=== PATIENT | female | born 1945 | race Asian ===

== ENCOUNTER → 2020-10-10 | Outpatient (CLI) | payer OTHER ==
[~2020-10-10] MED LIST: ADVIL200 M3 PO; ALENDRONATE SOD70 MG PO; ASA81BEC PO; ATORVASTATIN CA20 MG PO; CALCIUM 600 +1 EA11 PO; COQ-10100 MG PO; LOSARTAN POTASS50 MG PO; MELOXICAM15 MG PO; NORVASC5 MG PO; TURMERIC500 M2 PO; UNISOM25 MG PO; VITAMIN D375 MCG PO; VITRUM SENIOR1 EACH PO
[2020-10-10 13:44] LABS: URINE BILIRUBIN NEGATIVE (Negative); URINE BLOOD 1+ (Negative); URINE CLARITY CLEAR; URINE COLOR YELLOW; URINE GLUCOSE-RANDOM* NEGATIVE (Negative); URINE KETONES NEGATIVE (Negative); URINE LEUKOCYTES-REFLEX NEGATIVE (Negative); URINE NITRITE-REFLEX NEGATIVE (Negative); URINE PROTEIN (DIPSTICK) NEGATIVE (Negative); URINE SPECIFIC GRAVITY <= 1.005 (1.005-1.035); URINE UROBILINOGEN 0.2 E.U./dl (0.2-1.0)
[2020-10-10 13:45] LABS: HEMATOCRIT 40.2 % (37.0-47.0); HEMOGLOBIN 13.8 gm/dL (12.0-15.0); MCH 30.2 pg (26.0-34.0); MCHC 34.3 g/dL (28.0-37.0); MCV 87.9 fL (80.0-100.0); RBC 4.57 mil/uL (4.20-5.00); WBC 6.4 thou/uL (4.0-11.0)
[2020-10-10 13:52] LABS: ALBUMIN 3.8 g/dL (3.4-5.0); CALCIUM 9.5 mg/dL (8.5-10.1); CREATININE 0.7 mg/dL (0.6-1.0); POTASSIUM 4.2 mmol/L (3.5-5.1)
[2020-10-10 13:55] LABS: SQUAMOUS 0-3 Few /LPF (0-3)
[2020-10-10 13:56] LABS: BACTERIA-REFLEX None Seen /HPF (None Seen); CASTS None Seen /LPF (None Seen); CRYSTALS None Seen /LPF (None Seen); URINE RBC 1-2 Rare /HPF (NONE SEEN); URINE WBC-REFLEX None Seen /HPF (0-5)
[2020-10-10 14:04] LABS: INR 0.92; PROTIME 10.1 Seconds (10.5-12.1)
--- NOTE | 2020-10-10 14:27 | EKG ---
[address] [address] ELECTROCARDIOGRAM REPORT Name: SHAQUILLE LAIRD Room #: [facility]#: [id number] Admission: 10/10/20 Attend Phys: Karri New MD Discharge: Date of : 45 Report #: [id number] [facility] Test Date: 2020-10-10 Test Time: 13:17:17 Pat Name: SHAQUILLE LIARD Department: Room: Gender: F Brand Director: BEBETO OLIVER : 1945 Requested By: Karri New Order Number: [id number] MD: Pascual Ferrer Measurements Intervals [place] Rate: 79 P: 47 WV: 156 QRS: -50 QRSD: 86 T: 26 QT: 376 QTc: 432 Interpretive Statements Sinus rhythm Inferior infarct, old Baseline wander in lead(s) V2 No previous ECG available for comparison Electronically Signed On 10-10-2020 14:27:32 CDT by Pascual Ferrer [email or web address] <ELECTRONICALLY SIGNED> By: Pascual Ferrer MD, [facility] 10/10/20 1427 16 16 Pascual Ferrer MD, FACC /EPI
== END ==
LOC: EDBD → PAC 12:28
PROVIDERS: ATTEND Orthopaedic Surgery Sports Medicine
DX: Z01.812 Encounter for preprocedural laboratory examination (principal); Z01.810 Encounter for preprocedural cardiovascular examination; M17.11 Unilateral primary osteoarthritis, right knee; I25.2 Old myocardial infarction

== ENCOUNTER 2020-10-24 06:12 | Observation (INO) | payer OTHER ==
[~2020-10-24] VITALS: Ht 154.9 cm; Wt 54.2 kg
[2020-10-24 07:32] VITALS: BP 156/77
[2020-10-24 11:36] VITALS: BP 138/79
--- NOTE | 2020-10-24 13:37 | NUR ---
ASSUMED PT CARE FROM PACU AT 1136. PT IS ALERT & ORIENTED X4. PT HAS IV SITE ON R HAND 20 GAUGE RUNNING 1/2 NS @100ML/HR. PT IS UP WITH ASSIST X1 WITH WALKER AND GAITBELT. PT USES BEDSIDE COMMODE. PT TOLERATED DIET WELL THIS LUNCH. NO C/O OF PAIN, NAUSEA AND VOMITING. PT IS ON ROOM AIR. PATIENT WALKED WITH PHYSICAL THERAPY TODAY. PT ON THE BED WITH SCD ON, BED ON THE LOWEST POSITION, SIDE RAILS UP, CALL LIGHT WITHIN REACH. WILL CONTINUE TO MONITOR PT. FOLLOW POC.
--- NOTE | 2020-10-24 15:48 | NUR ---
ASSESSMENT: CM REVIEWED CHART AND SPOKE WITH PT AND HER AT THE BEDSIDE. PT IS S/P RIGHT UKA. PT REPORTS THAT SHE LIVES IN A HOUSE WITH HER . PT HAS ONE STEP TO ENTER THE HOME AND NO STEPS SHE HAS TO USE ONCE INSIDE. PT REPORTS THAT SHE HAS OUTPATIENT THERAPY ARRANGED WITH [facility] TO BEGIN ON FRIDAY. PT REPORTS SHE IS NORMALLY INDEPENDENT WITH ADLS AND AMBULATION BUT DOES HAVE A WALKER AT HOME. CM DISCUSSED ROLE. PT DOES NOT ANTICIPATE HAVING ANY NEEDS FROM CM.
--- NOTE | 2020-10-24 16:48 | O ---
[address] [address] OPERATIVE REPORT Name: SHAQUILLE LAIRD Room #: 434-P [facility]..#: [id number] Admission: 10/24/20 Attend Phys: Karri New MD Discharge: Date of : 45 Report #: [id number] THIS REPORT FOR: cc: FAM - Family physician unknown FAM - Family physician unknown Karri New MD ~ DOC #: [id number] Karri New MD DATE OF SERVICE: 10/24/2020 DATE OF PROCEDURE: 10/24/2020 SERVICE: Orthopedics. FACILITY: [facility]. SURGEON: Karri New MD TRUCK STRIKER: Brielle Smith NP. INDICATIONS FOR TRUCK STRIKER: Extremity positioning, exposure, fixation and closure. PREOPERATIVE DIAGNOSIS: Severe right knee osteoarthritis, right knee medial compartment. POSTOPERATIVE DIAGNOSIS: Severe right knee osteoarthritis, right knee medial compartment. PROCEDURES PERFORMED: 1. Right unicompartmental knee arthroplasty. 2. Robotic-assisted arthroplasty. COMPLICATIONS: None. DRAINS: None. SPECIMENS: None. ANESTHESIA: General with regional. FINDINGS: 1. [employer] Oxinium Journey II size 3 femoral component with size 1 tibial component and 9 poly spacer. 2. Healthy patellofemoral and lateral compartments. 3. Preoperative flexion contracture of 6 degrees, corrected to [address] [address] OPERATIVE REPORT Name: SHAQUILLE LAIRD Room #: 434-P [facility]..#: [id number] Admission: 10/24/20 Attend Phys: Karri New MD Discharge: Date of : 45 Report #: [id number] rest with easily achieving 2 degrees of hyperextension with gentle posterior directed force. HISTORY: The patient is a 75-year-old female with a history of persistent progressive right knee pain that has failed conservative measures including rest, activity modifications, physical therapy, corticosteroid injections, viscosupplementation, oral medicines and modalities. She had [id number] medial compartment osteoarthritis with sclerosis and osteophytes and also presented with a significant flexion contracture. We referred her for physical therapy and hopes that the therapy could restore her extension and keep her as a good candidate for unicompartmental knee arthroplasty. She showed nearly 20 degrees of improvement in her flexion contracture and was indicated for surgical treatment. Risks, benefits, alternatives and indications for surgery discussed with her in detail. Risks include but not limited to pain, bleeding, infection, injury to nerves or blood vessels, persistent pain despite surgical intervention, failure of any repairs, progression of preexisting chondral injury, need for further surgery including revision as well as complications related to anesthesia. Despite the risks, she wished to proceed. PROCEDURE IN DETAIL: After right lower extremity was correctly identified in the preoperative holding area as the operative extremity, the patient underwent regional nerve block. She was then taken to the operating room where general anesthesia was induced without complications. She was padded appropriately. Prophylactic antibiotics were administered at appropriate time. Tourniquet was applied to right leg. Right lower extremity was then prepped and draped in standard sterile fashion. A timeout procedure performed. Esmarch was used, tourniquet inflated to 250 mmHg. A standard anterior approach was made with a medial parapatellar arthrotomy. Retropatellar fat pad was resected as were the anterior horns of the lateral meniscus and the osteophytes. The medial compartment was evaluated and was found to have significant osteoarthritis. The trochlea, patella and lateral compartment had no significant arthritic changes and so she was considered to be a good candidate for UKA. Her examination under anesthesia demonstrated an approximately 5 degree flexion contracture and this was confirmed intraoperatively with the Navio system. The checkpoints and half pins were placed and then we proceeded with mapping of her iroquois anatomy and sized her to a 3 femur and a 2 tibia, ultimately selecting a size 1 tibia on visual inspection. The templating indicated a preoperative varus alignment of 7 degrees and we corrected her to 1 degree varus and corrected the flexion contracture as well. The Navio bur was then used to prepare the femur and prepared the tibia as well. We did not drill the lug holes initially on the femur and used the spacer blocks to assess for flexion, extension gap and she is felt to be well balanced with good terminal extension with the spacer block with the knee in extended position. Therefore, no additional femoral bone resection [address] [address] OPERATIVE REPORT Name: SHAQUILLE LAIRD Room #: 434-P [facility]..#: [id number] Admission: 10/24/20 Attend Phys: Karri New MD Discharge: Date of : 45 Report #: [id number] was required. We went back in and created the two lug holes in the femur and the tibia was then prepared accordingly and sized to that one tibia. We placed trials in and then assessed the balancing with the Navio. I was happy with the appearance, with range of motion, balancing and overall alignment. The trials were removed. The bone was prepared with the pulse lavage. The first of the periarticular injection cocktail was injected in the posterior capsule and then we cemented the final implants into position, placed the knee into extension and let the cement cure. The tourniquet was let down. Hemostasis was achieved and then on visual inspection, we assessed the 9 poly trial and were happy with the balancing and range of motion and selected the 9 as the final poly insert. The final poly was snapped into position after the knee was lavaged one additional time and the knee was well balanced. At this point, the arthrotomy was closed over a gram of vancomycin powder with 0 Vicryl suture in [id number]-eu-[id number] fashion. The skin was closed with 2-0 Vicryl followed by running subcuticular 3-0 Monocryl and Dermabond. Sterile dressing was applied. The patient was awakened from anesthesia and taken to recovery room in stable condition. No complications and all counts were reported as correct. She was placed in a thigh-high compression stocking. POSTOPERATIVE PLAN: For standard rehabilitation. Karri New MD [facility] <ELECTRONICALLY SIGNED> By: Karri eNw MD 10/24/20 1648 1122 1149 Karri New MD /
[2020-10-24 16:53] VITALS: BP 144/79
[2020-10-24 19:03] VITALS: BP 139/77
--- NOTE | 2020-10-25 02:42 | NUR ---
ASSESSED AT START OF SHIFT.PT RESTING IN BED DENIES PAIN, N/V ON ASSESSMENT. IV INTACT FLUIDS AND ABX GIVEN. PT UP WITH ASSISTX1 WITH A WALKER. TRIED TO AMBULATE TO THE BATHROOM KNEE BUCKLED. ENCOURED USE OF BEDSIDE COMMODE. RT KNEE LOUISE DRESSING INTACT. POLAR PACK, SCDS AND TEDHOSE IN PLACE. FALL PREC MAINTAINED. CALL LIGHT AT REACH WILL CONT TO MONITOR.
[2020-10-25 03:19] VITALS: BP 135/73
[2020-10-25 05:38] LABS: HEMATOCRIT 35.2 % (37.0-47.0); HEMOGLOBIN 12.1 gm/dL (12.0-15.0); MCH 30.4 pg (26.0-34.0); MCHC 34.3 g/dL (28.0-37.0); MCV 88.7 fL (80.0-100.0); RBC 3.97 mil/uL (4.20-5.00); RDW 12.5 % (10.5-14.5)
[2020-10-25 05:53] LABS: CALCIUM 7.9 mg/dL (8.5-10.1); CREATININE 0.7 mg/dL (0.6-1.0); POTASSIUM 3.3 mmol/L (3.5-5.1)
[2020-10-25 07:33] VITALS: BP 135/73
--- NOTE | 2020-10-25 09:38 | NUR ---
ASSUMED PT CARE THIS AM. PT IS ALERT & ORIENTED X4. PT HAS IV SITE ON R HAND 20 GAUGE SALINE LOCKED. PT IS UP WITH ASSIST X1 WITH WALKER AND GAITBELT. PT USES BEDSIDE COMMODE. PT HAS BILATERAL THIGH [facility], POLAR CARE, AND SCD. PT IS ON ROOM AIR. PATIENT WORKED WITH PHYSICAL THERAPY TODAY. GIVEN PAIN MEDICATION PRIOR PHYSICAL THERAPY PT REQUEST. PT TOLERATED DIET AND MEDICATION WELL. NO C/O OF VOMITING AND NAUSEA. WILL CONTINUE TO MONITOR PT. FOLLOW POC.
--- NOTE | 2020-10-25 11:47 | NUR ---
ON-GOING ASSESSMENT: CM REVIEWED CHART AND SPOKE WITH PATIENT. PT DID WELL WITH THERAPY AND ANTICIPATE HOME TODAY. CM SPOKE WITH PATIENT WHO REPORTS EVERYTHING IS ALREADY ARRANGED FOR OUTPT WITH [facility] AND DENIES HAVING ANY NEEDS FROM CASE MANAGEMENT. PT REPORTS HER WILL TRANSPORT HER HOME. PT HAS NEEDED DME.
[2020-10-25 12:54] VITALS: BP 135/73
== END 2020-10-25 15:50 | disposition home or self-care (01) ==
LOC: EDBD → OR → TBA 06:12 → 4S 11:09 → OR 11:10 → 4S 11:10 → OR 12:36 → 4S 10-25 15:50
PROVIDERS: ADMIT Orthopaedic Surgery Sports Medicine; ATTEND Orthopaedic Surgery Sports Medicine
DX: M17.11 Unilateral primary osteoarthritis, right knee (principal); I10 Essential (primary) hypertension; E78.00 Pure hypercholesterolemia, unspecified; M81.0 Age-related osteoporosis without current pathological fracture; E78.5 Hyperlipidemia, unspecified; Z79.899 Other long term (current) drug therapy
CPT/HCPCS: 50010; 50101; 50415; 50954; 51130; 51225; 51320; 52001; 52282; 53078; 53370; 54118; 56527; 56528; 57095; 57103; 57110; 57127; 57179; 62110; 62900; 70005